=== PATIENT | female | born 1960 | race Caucasian/White ===

== ENCOUNTER 2023-06-03 11:50 | Day surgery (SDC) | payer MEDICAID ==
[~2023-06-03] VITALS: Ht 157.5 cm; Wt 94.4 kg
[~2023-06-03 11:50] MED LIST: AMOX1TAB16 PO; CHOL25TA4 PO; CYCLOPENTOLATE HCL 1% 2 ML OPHTHALMIC SOLUTION ONE; ETAN25SY SQ; FLURBIPROFEN SODIUM 0.03% 2.5 ML OPHTHALMIC SOLUTION ONE; FOLI-130 PO; GABA-1181 PO; LEVO50 PO; MOXIFLOXACIN HCL 0.5% 3 ML OPHTHALMIC SOLUTION ONE; PHENYLEPHRINE HCL 2.5% 2 ML OPHTHALMIC SOLUTION ONE; RINGERS SOLUTION,LACTATED 500 ML IV ONE; SULF500T60 PO; TETRACAINE HCL/PF 0.5% 4 ML OPHTHALMIC SOLUTION ONE; TROPICAMIDE 1% 2 ML OPHTHALMIC SOLUTION ONE
[2023-06-03] MEDS ORDERED: MIDAZOLAM HCL 2 MG/2 ML VIAL IVP ONE (12:00)
[2023-06-03] MEDS ORDERED: FentaNYL CITRATE PF 100 MCG/2 ML VIAL IVP ONE (12:00)
[2023-06-03] MEDS ORDERED: LIDOCAINE 2%/EPI 1:200,000/PF 20 ML VIAL ONE (12:15)
[2023-06-03] MEDS ORDERED: DEXAMETHASONE SOD PHOS 4 MG/ML VIAL ONE (12:15)
[2023-06-03] MEDS ORDERED: BUPIVACAINE HCL/PF 0.75% 10 ML VIAL ONE (12:15)
[2023-06-03] MEDS ORDERED: TETRACAINE HCL/PF 0.5% 4 ML OPHTHALMIC SOLUTION ONE (12:15)
[2023-06-03] MEDS ORDERED: LIDOCAINE/PF 1% 2 ML VIAL ONE (12:16)
[2023-06-03] MEDS ORDERED: BALANCED SALT 15 ML OPHTHALMIC IRRIG.SOLN ONE (12:17)
[2023-06-03] MEDS ORDERED: NEOMYCIN/BACITRACIN/POLYMYXIN B OINTMENT PACKET TP ONE (12:17)
[2023-06-03] MEDS ORDERED: NEOMYCIN/POLYMYXIN B/DEXAMETH 3.5 GM OPHTHALMIC OINTMENT ONE (12:18)
[2023-06-03] MEDS ORDERED: POVIDONE-IODINE 5% 30 ML OPHTHALMIC SOLUTION ONE (12:18)
[2023-06-03] MEDS ORDERED: OFLOXACIN 0.3% 5 ML OPHTHALMIC SOLUTION OS ONE (13:00)
[2023-06-03] MEDS ORDERED: MitoMYcin 0.2 MG/VIAL KIT FOR OPHTHALMIC USE OS ONE (13:00)
[2023-06-03] MEDS: MOXIFLOXACIN HCL 0.5% 3 ML OPHTHALMIC SOLUTION OS ONE (13:26)
[2023-06-03] MEDS: RINGERS SOLUTION,LACTATED 500 ML IV ONE (13:26)
[2023-06-03] MEDS ORDERED: ACETAMINOPHEN 325 MG TABLET ONE (15:04)
[2023-06-03] MEDS: ACETAMINOPHEN 325 MG TABLET PO PRN (15:06)
== END 2023-06-03 15:45 | disposition home or self-care (01) ==
LOC: SURGERY 11:50
PROVIDERS: ATTEND Ophthalmology
DX: H11.002 Unspecified pterygium of left eye (principal); M19.90 Unspecified osteoarthritis, unspecified site; Z79.899 Other long term (current) drug therapy; Z98.890 Other specified postprocedural states
CPT/HCPCS: 65426; 93005; J3490 ×2; J1100; J3010; J2250; Q9967; J7120